=== PATIENT | female | born 1945 | race Native Hawaiian/Other Pacific Islander ===

== ENCOUNTER 2016-12-01 15:45 | Inpatient (IN) | payer OTHER ==
[~2016-12-01] VITALS: Ht 165.1 cm; Wt 40.0 kg
[2016-12-01] VITALS (31 sets, daily range): BP systolic 57–174; BP diastolic 32–100; TEMP 98.2–98.3; Ht 165.1 cm; Wt 40.0 kg
[~2016-12-01 15:45] MED LIST: CIMETIDINE400 MG PO; CIPR500T PO; DAILY MULT1 PO; FORTEO SC; HYDR5TAB9 PO; LIPITOR20 MG PO; MYSOLINE250 MG PO; TIROSINT137 MCG PO; TRAM50TA PO; TYLENOL325 MG PO
[2016-12-01 18:13] LABS: PLATELET COUNT 470 K/uL (152-353)
[2016-12-01 18:39] LABS: POTASSIUM 3.7 mmol/L (3.6-5.2)
[2016-12-02] VITALS (55 sets, daily range): BP systolic 71–179; BP diastolic 50–71; TEMP 98.3–101.4
[2016-12-02 05:46] LABS: PLATELET COUNT 366 K/uL (152-353)
[2016-12-02 06:01] LABS: POTASSIUM 3.1 mmol/L (3.6-5.2); SODIUM 146 mmol/L (136-145)
[2016-12-02 06:12] LABS: PARTIAL THROMBOPLASTIN TIME 32.5 SECONDS (24.5-33.6)
[2016-12-03] VITALS (56 sets, daily range): BP systolic 68–210; BP diastolic 34–85; TEMP 98–100.7
[2016-12-03 06:20] LABS: PLATELET COUNT 362 K/uL (152-353)
[2016-12-03 07:06] LABS: POTASSIUM 2.5 mmol/L (3.6-5.2); SODIUM 137 mmol/L (136-145)
[2016-12-03 18:19] LABS: PLATELET COUNT 323 K/uL (152-353)
[2016-12-03 19:41] LABS: PARTIAL THROMBOPLASTIN TIME 54.8 SECONDS (24.5-33.6)
[2016-12-04] VITALS (35 sets, daily range): BP systolic 104–220; BP diastolic 49–87; TEMP 98.8–102
[2016-12-04 05:55] LABS: PLATELET COUNT 316 K/uL (152-353)
[2016-12-04 06:02] LABS: POTASSIUM 3.1 mmol/L (3.6-5.2); SODIUM 139 mmol/L (136-145)
[2016-12-04 11:48] LABS: PARTIAL THROMBOPLASTIN TIME 89.3 SECONDS (24.5-33.6)
[2016-12-05] VITALS (17 sets, daily range): BP systolic 128–172; BP diastolic 52–80; TEMP 97.6–98.6
[2016-12-05 04:44] LABS: POTASSIUM 3.5 mmol/L (3.6-5.2); SODIUM 139 mmol/L (136-145)
[2016-12-05 04:45] LABS: PLATELET COUNT 376 K/uL (152-353)
[2016-12-06 00:21] VITALS: BP 153/71; TEMP 98
[2016-12-06 04:00] VITALS: BP 147/75; TEMP 98.4
[2016-12-06 05:22] LABS: PLATELET COUNT 404 K/uL (152-353)
[2016-12-06 05:34] LABS: POTASSIUM 3.2 mmol/L (3.6-5.2); SODIUM 141 mmol/L (136-145)
[2016-12-06 08:00] VITALS: BP 165/87; TEMP 98.4
[2016-12-06 12:00] VITALS: BP 158/80; TEMP 98
[2016-12-06 16:00] VITALS: BP 155/65; TEMP 98.1
[2016-12-06 20:16] VITALS: BP 158/66; TEMP 98.3
[2016-12-07 00:27] VITALS: BP 143/69; TEMP 98.2
[2016-12-07 05:00] VITALS: BP 161/75; TEMP 98.2
[2016-12-07 06:07] LABS: PLATELET COUNT 409 K/uL (152-353)
[2016-12-07 06:21] LABS: POTASSIUM 3.5 mmol/L (3.6-5.2); SODIUM 140 mmol/L (136-145)
[2016-12-07 08:00] VITALS: BP 156/79; TEMP 101
[2016-12-07 12:00] VITALS: BP 141/73; TEMP 98.4
[2016-12-07 16:00] VITALS: BP 182/81; TEMP 98.4
[2016-12-07 20:00] VITALS: BP 149/76; TEMP 99.2
[2016-12-08] VITALS: BP 151/78; TEMP 100.1
[2016-12-08 04:00] VITALS: BP 162/81; TEMP 98.3
[2016-12-08 06:54] LABS: PLATELET COUNT 448 K/uL (152-353)
[2016-12-08 07:17] LABS: SODIUM 138 mmol/L (136-145)
[2016-12-08 08:00] VITALS: BP 166/77; TEMP 99.2
[2016-12-08 12:00] VITALS: BP 153/78; TEMP 98.2
[2016-12-08 16:00] VITALS: BP 188/67; TEMP 98.1
[2016-12-08 20:00] VITALS: BP 178/83; TEMP 99.3
[2016-12-09] VITALS: BP 160/73; TEMP 98.4
[2016-12-09 04:00] VITALS: BP 187/74; TEMP 98.9
[2016-12-09 05:25] LABS: PLATELET COUNT 413 K/uL (152-353)
[2016-12-09 05:38] LABS: POTASSIUM 2.5 mmol/L (3.6-5.2); SODIUM 134 mmol/L (136-145)
[2016-12-09 12:00] VITALS: BP 157/86; TEMP 98.3
[2016-12-09 16:00] VITALS: BP 154/67; TEMP 98.4
[2016-12-09 18:30] LABS: PLATELET COUNT 437 K/uL (152-353)
[2016-12-09 20:28] VITALS: BP 165/69; TEMP 98
[2016-12-09 23:50] VITALS: BP 179/69; TEMP 98.2
[2016-12-10 04:00] VITALS: BP 159/68; TEMP 97.9
[2016-12-10 04:58] LABS: SODIUM 135 mmol/L (136-145)
[2016-12-10 05:00] LABS: POTASSIUM 2.2 mmol/L (3.6-5.2)
[2016-12-10 08:00] VITALS: BP 112/60; TEMP 98.4
[2016-12-10 08:36] LABS: PLATELET COUNT 455 K/uL (152-353)
[2016-12-10 12:00] VITALS: BP 142/61; TEMP 97.7
[2016-12-10 16:00] VITALS: BP 142/69; TEMP 97.8
[2016-12-10 20:00] VITALS: BP 155/67; TEMP 98.9
[2016-12-11] VITALS: BP 160/70; TEMP 98.2
[2016-12-11 04:00] VITALS: BP 183/83; TEMP 98.6
[2016-12-11 05:19] LABS: PLATELET COUNT 532 K/uL (152-353)
[2016-12-11 05:28] LABS: SODIUM 136 mmol/L (136-145)
[2016-12-11 05:45] LABS: POTASSIUM 2.4 mmol/L (3.6-5.2)
[2016-12-11 08:00] VITALS: BP 151/88; TEMP 98.2
[2016-12-11 12:00] VITALS: BP 159/76; TEMP 97.7
[2016-12-11 16:00] VITALS: BP 174/80; TEMP 97.7
[2016-12-11 20:00] VITALS: BP 146/57; TEMP 97.7
[2016-12-12 00:03] VITALS: BP 144/65; TEMP 100.1
[2016-12-12 05:19] LABS: PLATELET COUNT 667 K/uL (152-353)
[2016-12-12 05:29] LABS: POTASSIUM 3.7 mmol/L (3.6-5.2); SODIUM 134 mmol/L (136-145)
[2016-12-12 05:59] VITALS: BP 158/68; TEMP 100.1
[2016-12-12 12:00] VITALS: BP 128/61; TEMP 97.9
[2016-12-12 17:51] VITALS: BP 136/62; TEMP 98.2
[2016-12-12 20:00] VITALS: BP 138/64; TEMP 98
[2016-12-13] VITALS: BP 145/61; TEMP 98.2
[2016-12-13 04:00] VITALS: BP 168/66; TEMP 97.8
[2016-12-13 05:23] LABS: PLATELET COUNT 755 K/uL (152-353)
[2016-12-13 05:42] LABS: POTASSIUM 3.4 mmol/L (3.6-5.2); SODIUM 131 mmol/L (136-145)
[2016-12-13 08:00] VITALS: BP 145/72; TEMP 98.3
[2016-12-13 12:00] VITALS: BP 142/68; TEMP 98.1
[2016-12-13 16:00] VITALS: BP 147/70; TEMP 97.8
[2016-12-13 20:39] VITALS: BP 168/75; TEMP 98.7
[2016-12-14 00:20] VITALS: BP 162/73; TEMP 98.2
[2016-12-14 05:56] VITALS: BP 160/63; TEMP 97.7
[2016-12-14 06:18] LABS: POTASSIUM 3.2 mmol/L (3.6-5.2); SODIUM 138 mmol/L (136-145)
[2016-12-14 06:51] LABS: PLATELET COUNT 779 K/uL (152-353)
[2016-12-14 08:00] VITALS: BP 154/70; TEMP 98.2
[2016-12-14 12:00] VITALS: BP 144/69; TEMP 98.3
[2016-12-14 16:20] VITALS: BP 124/73; TEMP 98.2
[2016-12-14 20:00] VITALS: BP 159/62; TEMP 97.9
[2016-12-15 00:01] VITALS: BP 156/64; TEMP 97.6
[2016-12-15 04:00] VITALS: BP 149/60; TEMP 97.5
[2016-12-15 06:07] LABS: SODIUM 135 mmol/L (136-145)
[2016-12-15 07:00] LABS: PLATELET COUNT 987 K/uL (152-353)
[2016-12-15 08:00] VITALS: BP 157/57; TEMP 98
[2016-12-15 12:00] VITALS: BP 142/64; TEMP 97.6
[2016-12-15 16:00] VITALS: BP 154/58; TEMP 98
[2016-12-15 20:00] VITALS: BP 159/58; TEMP 98
[2016-12-16] VITALS: BP 159/74; TEMP 98.2
[2016-12-16 04:00] VITALS: BP 160/68; TEMP 97.7
[2016-12-16 06:49] LABS: PLATELET COUNT 794 K/uL (152-353)
[2016-12-16 08:00] VITALS: BP 162/69; TEMP 97.3
[2016-12-16 08:16] LABS: POTASSIUM 4.1 mmol/L (3.6-5.2); SODIUM 140 mmol/L (136-145)
[2016-12-16 12:00] VITALS: BP 129/64; TEMP 98
[2016-12-16 16:00] VITALS: BP 168/76; TEMP 97.8
[2016-12-16 20:00] VITALS: BP 137/60; TEMP 97.6
[2016-12-17] VITALS: BP 134/60; TEMP 97.3
[2016-12-17 04:00] VITALS: BP 151/63; TEMP 97.6
[2016-12-17 07:56] LABS: POTASSIUM 3.4 mmol/L (3.6-5.2); SODIUM 138 mmol/L (136-145)
[2016-12-17 08:00] VITALS: BP 159/68; TEMP 97.8
[2016-12-17 08:34] LABS: PLATELET COUNT 783 K/uL (152-353)
[2016-12-17 12:00] VITALS: BP 133/64; TEMP 97.5
[2016-12-17 15:52] LABS: PARTIAL THROMBOPLASTIN TIME 27.6 SECONDS (24.5-33.6)
[2016-12-17 16:00] VITALS: BP 158/71; TEMP 98.4
[2016-12-17 20:00] VITALS: BP 159/70; TEMP 97.9
[2016-12-18] VITALS: BP 107/54; TEMP 97.8
[2016-12-18 04:00] VITALS: BP 138/60; TEMP 100.3
[2016-12-18 06:34] LABS: PLATELET COUNT 775 K/uL (152-353)
[2016-12-18 07:04] LABS: POTASSIUM 2.7 mmol/L (3.6-5.2); SODIUM 137 mmol/L (136-145)
[2016-12-18 08:00] VITALS: BP 123/59; TEMP 98.6
[2016-12-18 12:00] VITALS: BP 138/64; TEMP 98.4
[2016-12-18 16:00] VITALS: BP 140/64; TEMP 98.6
[2016-12-18 20:00] VITALS: BP 148/63; TEMP 98.1
[2016-12-19] VITALS: BP 154/68; TEMP 98.1
[2016-12-19 04:00] VITALS: BP 150/64; TEMP 98.3
[2016-12-19 06:29] LABS: PLATELET COUNT 756 K/uL (152-353)
[2016-12-19 06:39] LABS: POTASSIUM 3.7 mmol/L (3.6-5.2); SODIUM 139 mmol/L (136-145)
[2016-12-19 08:00] VITALS: BP 158/74; TEMP 98
[2016-12-19 12:00] VITALS: BP 138/57; TEMP 97.8
[2016-12-19 16:00] VITALS: BP 142/58; TEMP 98
[2016-12-19 20:00] VITALS: BP 145/71; TEMP 98.1
[2016-12-20] VITALS: BP 157/75; TEMP 97.4
[2016-12-20 04:00] VITALS: BP 148/73; TEMP 97.6
[2016-12-20 05:49] LABS: PLATELET COUNT 658 K/uL (152-353)
[2016-12-20 05:55] LABS: POTASSIUM 3.4 mmol/L (3.6-5.2); SODIUM 137 mmol/L (136-145)
[2016-12-20 08:00] VITALS: BP 164/73; TEMP 98
[2016-12-20 12:00] VITALS: BP 162/70; TEMP 97.9
[2016-12-20 16:00] VITALS: BP 114/68; TEMP 98.1
[2016-12-20 20:07] VITALS: BP 157/75; TEMP 98
[2016-12-21] VITALS: BP 118/61; TEMP 97.8
[2016-12-21 04:00] VITALS: BP 140/69; TEMP 97.9
[2016-12-21 08:00] VITALS: BP 129/68; TEMP 97.3
[2016-12-21 08:49] LABS: POTASSIUM 2.9 mmol/L (3.6-5.2); SODIUM 139 mmol/L (136-145)
[2016-12-21 09:06] LABS: PLATELET COUNT 583 K/uL (152-353)
[2016-12-21 12:00] VITALS: BP 128/61; TEMP 97.5
[2016-12-21 16:00] VITALS: BP 104/47; TEMP 96.2
[2016-12-21 20:00] VITALS: BP 149/74; TEMP 97.7
[2016-12-22] VITALS (15 sets, daily range): BP systolic 70–168; BP diastolic 38–71; TEMP 98.2–101.6
[2016-12-22 08:41] LABS: PLATELET COUNT 547 K/uL (152-353)
[2016-12-22 08:53] LABS: POTASSIUM 3.7 mmol/L (3.6-5.2); SODIUM 137 mmol/L (136-145)
[2016-12-23] VITALS (21 sets, daily range): BP systolic 103–176; BP diastolic 48–110; TEMP 98.1–101
[2016-12-23 06:14] LABS: PLATELET COUNT 370 K/uL (152-353)
[2016-12-23 06:43] LABS: POTASSIUM 3.2 mmol/L (3.6-5.2); SODIUM 139 mmol/L (136-145)
[2016-12-23 14:30] LABS: PARTIAL THROMBOPLASTIN TIME 27.9 SECONDS (24.5-33.6)
[2016-12-24] VITALS (22 sets, daily range): BP systolic 96–1139; BP diastolic 46–89; TEMP 98–975
[2016-12-24 07:22] LABS: PLATELET COUNT 398 K/uL (152-353)
[2016-12-24 07:40] LABS: POTASSIUM 2.7 mmol/L (3.6-5.2); SODIUM 140 mmol/L (136-145)
[2016-12-25] VITALS (24 sets, daily range): BP systolic 90–175; BP diastolic 42–93; TEMP 97.8–98.9
[2016-12-25 06:58] LABS: PLATELET COUNT 438 K/uL (152-353)
[2016-12-25 07:18] LABS: POTASSIUM 3.6 mmol/L (3.6-5.2); SODIUM 137 mmol/L (136-145)
[2016-12-26] VITALS (18 sets, daily range): BP systolic 126–174; BP diastolic 69–96; TEMP 97–97.9
[2016-12-26 08:59] LABS: PLATELET COUNT 458 K/uL (152-353)
[2016-12-26 08:59] LABS: POTASSIUM 2.9 mmol/L (3.6-5.2); SODIUM 138 mmol/L (136-145)
== END 2016-12-26 18:05 | DRG 871 ==
LOC: ICU 15:45 → MED/SURG 12-05 17:50 → ICU 12-22 12:45
PROVIDERS: Emergency Medicine; Student in an Organized Health Care Education/Training Program; ADMIT Internal Medicine
PROC: 5A1945Z Respiratory Ventilation, 24-96 Consecutive Hours (ICD-10-PCS; principal; 2016-12-01)
PROC: 0BH17EZ Insertion of Endotracheal Airway into Trachea, Via Natural or Artificial Opening (ICD-10-PCS; 2016-12-01)
PROC: 05HM33Z Insertion of Infusion Device into Right Internal Jugular Vein, Percutaneous Approach (ICD-10-PCS; 2016-12-01)
PROC: 03HY32Z Insertion of Monitoring Device into Upper Artery, Percutaneous Approach (ICD-10-PCS; 2016-12-02)
PROC: 02HV33Z Insertion of Infusion Device into Superior Vena Cava, Percutaneous Approach (ICD-10-PCS; 2016-12-08)
PROC: 05H533Z Insertion of Infusion Device into Right Subclavian Vein, Percutaneous Approach (ICD-10-PCS; 2016-12-10)
PROC: 30233N1 Transfusion of Nonautologous Red Blood Cells into Peripheral Vein, Percutaneous Approach (ICD-10-PCS; 2016-12-15)
PROC: 0DH63UZ Insertion of Feeding Device into Stomach, Percutaneous Approach (ICD-10-PCS; 2016-12-15)
PROC: 30233N1 Transfusion of Nonautologous Red Blood Cells into Peripheral Vein, Percutaneous Approach (ICD-10-PCS; 2016-12-16)
DX: R65.21 Severe sepsis with septic shock (principal); J96.01 Acute respiratory failure with hypoxia; J15.8 Pneumonia due to other specified bacteria; B37.89 Other sites of candidiasis; E46 Unspecified protein-calorie malnutrition; R00.0 Tachycardia, unspecified; R13.12 Dysphagia, oropharyngeal phase; E87.6 Hypokalemia; D72.828 Other elevated white blood cell count; D64.89 Other specified anemias; D69.6 Thrombocytopenia, unspecified; R62.7 Adult failure to thrive; E88.09 Other disorders of plasma-protein metabolism, not elsewhere classified; K29.60 Other gastritis without bleeding; K44.9 Diaphragmatic hernia without obstruction or gangrene
CPT/HCPCS: 31500; 36415; 36571; 36591; 36600; 51702; 80048; 80053; 80200; 80202; 81000; 82272; 82805; 82962; 83520; 83605; 83735; 83880; 84100; 84295; 84439; 84443; 85007; 85014; 85018; 85027; 85240; 85245; 85246; 85247; 85379; 85610; 85730; 86039; 86850; 86900; 86901; 86922; 87040; 87070; 87077; 87088; 87116; 87186; 87205; 87206; 93005; 94002; 94003; 94640; 94664; 94668; 94760; 96372; C1751; C1768; J1265; J1450; J1644; J1650; J1885; J1940; J1956; J2020; J2060; J2250; J2405; J2704; J2930; J3260; J3370; J3475; J3480; J3490; J7060; P9016; Q9963